=== PATIENT | male | born 1945 | race Caucasian/White ===

== ENCOUNTER 2019-09-12 07:00 | Outpatient (CLI) | payer BC ==
[2019-09-12] VITALS (10 sets, daily range): BP systolic 129–152; BP diastolic 64–79
[~2019-09-12] VITALS: Ht 182.9 cm; Wt 123.4 kg
[~2019-09-12 07:00] MED LIST: ASPI-630 PO; ASPI325T11 PO; ATOR20TA58 PO; CARV12.5 PO; CARV25TA PO; CARV6.25 PO; CHOL500016 PO; CLOP75TA57 PO; Cholestyramine/Aspartame PO; EZET10TA20 PO; LISI10TA2 PO; LISI20TA PO; METF500T16 PO; MULT-121 PO; OMEG10006 PO
[2019-09-12] MEDS ORDERED: ASPI-630 PO (07:30)
[2019-09-12] MEDS ORDERED: CARV12.5 PO (07:30)
[2019-09-12] MEDS ORDERED: TAMS0.4C97 PO (07:32)
[2019-09-12] MEDS ORDERED: MAGN400C PO (07:32)
[2019-09-12] MEDS ORDERED: IODIXANOL 320 MG/ML 100 ML VIAL. ONE (07:38)
[2019-09-12] MEDS ORDERED: LIDOCAINE 1% PF 2 ML VIAL. ONE (07:38)
[2019-09-12 07:48] LABS: HEMOGLOBIN 15.7 g/dL (13.0-17.5); RED BLOOD COUNT 5.27 x10^6/uL (4.30-5.70); RED CELL DISTRIBUTION WIDTH 13.4 % (11.5-14.5); WHITE BLOOD COUNT 7.6 x10^3/uL (4.0-11.0)
[2019-09-12] MEDS ORDERED: IODIXANOL 320 MG/ML 100 ML VIAL. IART ONE (08:00)
[2019-09-12] MEDS ORDERED: NITROGLYCERIN 200 MCG/2 ML SYRINGE FOR CATH/VASC LAB. IART ONE (08:00)
[2019-09-12] MEDS ORDERED: MIDAZOLAM HCL/PF 2 MG/2 ML VIAL. IV ONE (08:00)
[2019-09-12] MEDS ORDERED: HEPARIN for IV BOLUS 10,000 UNIT/10 ML VIAL. IART ONE (08:00)
[2019-09-12] MEDS ORDERED: fentaNYL PF VIAL 100 MCG/2 ML VIAL IV ONE (08:00)
[2019-09-12] MEDS ORDERED: VERAPAMIL 5 MG/2 ML VIAL. IART ONE (08:00)
[2019-09-12] MEDS ORDERED: LIDOCAINE 1% PF 2 ML VIAL. INJ ONE (08:00)
[2019-09-12 08:01] LABS: PROTHROMBIN TIME PATIENT 12.6 SEC (11.7-14.0)
[2019-09-12 08:08] LABS: CALCIUM 8.7 mg/dL (8.5-10.1); GFR 72.8; POTASSIUM 4.2 mmol/L (3.5-5.1)
[2019-09-12] MEDS ORDERED: MIDAZOLAM HCL/PF 2 MG/2 ML VIAL. ONE (08:57)
[2019-09-12] MEDS ORDERED: HEPARIN for IV BOLUS 10,000 UNIT/10 ML VIAL. IV ONE (09:15)
[2019-09-12] MEDS ORDERED: FUROSEMIDE 40 MG/4 ML VIAL. IVP ONE (10:00)
--- NOTE | 2019-09-12 10:01 | CARD ---
MR#: [id number] Date of Study: 09/12/2019 Ordering Physician: ELVIA VALENTE, Referring Physician: ELVIA VALENTE Tech: MELCHOR GARRIDO RTR APPROVED REPORT Technologist: MELCHOR GARRIDO RTR Nurse: Jovanna Centeno RN Procedure(s) performed: 1. Left heart catheterization, selective coronary angiography and left ventr iculography via right transradial approach 2. Instant wave free ratio (IFR) measurement of the left circumflex artery stenosis MODERATE SEDATION TIME: 40 MINUTES FLUORO TIME: 7.5 MIN DOSE: 90.7 GYCM2 CONTRAST: 146CC VISI INDICATION The indication(s) include : unstable angina . CSHA Clinical Frailty Scale CS Clinical Frailty Scale: Mildly Frail Heart Failure Heart Failure: No PROCEDURE NARRATIVE After explaining the risks, benefits and alternative options, informed consent was obtained from chin ent. Patient was brought to the cardiac Nursing Unit Coordinator and right wrist was prepped and draped in the usual fashion after confirming a positive modified Isaac's test. Arterial access was obtained in the righ t radial artery and a 6 [place] sheath was inserted. 6 [place] Lambert catheter was used to perform qi ective angiography of the left and right coronary arteries. 6 [place] pigtail catheter was used to pe rform left ventriculography. Since patient was found to have angiographically borderline significant stenosis involving the midsegment of the left circumflex artery, a decision was made to perform phys iologic assessment using Instant wave free ratio (IFR) measurement. The left main coronary artery was engaged with a 6 [place] XB 3.5 guide catheter and the stenosis in the midsegment of LCx was crossed with a [employer] Verrata PressureWire. IFR measurement was made that was insignificant and 1.0. Patient tolerated the procedure well. Hemostasis was achieved using TR band. There were no immediate compl ications. The following findings were noted. FINDINGS 1. 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 No pullback gradient across the aortic valve. 2. Left ventriculography: Normal left ventricle systolic function with ejection fraction estimated at 60%. No significant mitral regurgitation seen. 3. Coronary angiography: a. The left main coronary artery arose from the left sinus of Valsalva, gave rise to the left anteri or descending and left circumflex arteries and did not show any significant stenosis. b. The left anterior descending artery showed patent previously placed stents in the mid and distal segments. There was a 60% stenosis noted in the distal segment of LAD, proximal to the distal stent. The first diagonal branch which is a small to medium caliber vessel showed 70% stenosis in the proxi mal segment. c. The left circumflex artery showed 50-60% in-stent restenosis involving the midsegment after the t akeoff of the first obtuse marginal branch. This was physiologically insignificant based on IFR measu rement of 1.0. The previously placed stent in the proximal and mid segments of the obtuse marginal br anch was widely patent. d. The right coronary artery was a dominant vessel arising from the right sinus of Valsalva that sh owed widely patent stent in the distal segment extending into the posterior descending branch. Conclusion 1. Nonobstructive coronary artery disease. 50-60% in-stent restenosis involving the left circumflex artery, physiologically insignificant based on IFR measurement. The previously placed stents in the o btuse marginal branch of LCx, left anterior descending artery and right coronary artery with patent. 2. Normal left ventricle systolic function with ejection fraction estimated at 60%. Recommendations Medical Therapy Signed by : Elvia Valente, Electronically Approved : 09/12/2019 10:01:32
--- NOTE | 2019-09-12 10:04 | PDOC ---
MODERATE SEDATION ASSESSMENT RISKS/ALTERNATIVES Risks/Alternatives Risks and alternatives of this type of sedation and procedure discussed with: RISK/ALTERNATIVES: Patient H & P ON CHART H & P H & P on chart and reviewed for co-morbid conditions and appropriate labs. H&P ON CHART: Yes STATUS PREG STATUS ASSESSED: N/A MEDS/ALLERGIES REVIEWED Meds/Allergies Reviewed Medications and Allergies including time and route of recently administered narcotics and sedatives. MEDS/ALLERGIES REVIEWED: Yes ASA RATING ASA RATING: II AIRWAY ASSESSMENT Airway Assessment Airway patency, oral function limitations, presence of caps, crowns, dentures, partials, and ability to extend neck assessed. AIRWAY ASSESSMENT: Yes MALLAMPATI SCORE MALLAMPATI SCORE: II PRE-SEDATION ASSESSMENT PRE-SEDATION ASSESSMENT: Yes ELVIA VALENTE MD Sep 12, 2019 10:04
[2019-09-12] MEDS ORDERED: NITROGLYCERIN SUBLINGUAL 0.4 MG BOTTLE OF 25. SL PRN (10:15)
[2019-09-12] MEDS ORDERED: ISOS60TA2 PO (11:55)
--- NOTE | 2019-09-12 13:42 | CARD ---
MR#: [id number] Date of Study: 09/12/2019 Ordering Physician: ELVIA VALENTE, Referring Physician: ELVIA VALENTE Tech: Kriss Magallon RDCS APPROVED REPORT EXAM: Two-dimensional and M-mode echocardiogram with Doppler and color Doppler. Other Information Quality : Good INDICATION Cardiac Disease: CAD 2D DIMENSIONS RVDd3.1 (2.9-3.5cm)Left Atrium(2D)4.2 (1.6-4.0cm) IVSd1.2 (0.7-1.1cm)Aortic Root(2D)3.0 (2.0-3.7cm) LVDd4.4 (3.9-5.9cm)LVOT Diameter2.1 (1.8-2.4cm) PWd1.4 (0.7-1.1cm)LVDs2.6 (2.5-4.0cm) FS (%) 30.0 %SV63.7 ml LVEF(%)60.0 (>50%) M-Mode DIMENSIONS Aortic Cusp Exc1.48 (1.5-2.0cm) Aortic Valve AoV Peak Chris.127.3cm/sAoV VTI20.6cm AO Peak GR.6.5mmHgLVOT VTI 22.09cm AO Mean GR.3mmHgAVA (VTI)3.60cm2 Mitral Valve MV E Quwayvyr10.4cm/sMV DECEL [id number] MV A Yvlqwwby89.1cm/sE/A Ratio0.7 TDI Lateral E' P. V5.99cm/sMedial E' P. V3.67cm/s E/Lateral E'9.4E/Medial E'15.4 Pulmonary Vein S1 Fkiovoxb95.6cm/sS2 Meycsttg68.48cm/s D2 Vidodwrv21.5cm/s LEFT VENTRICLE The left ventricle is normal size. There is mild concentric left ventricular hypertrophy. The left ve ntricular systolic function is normal. The ejection fraction is estimated at 60%. There is normal LV segmental wall motion. Transmitral Doppler flow pattern is Grade I-abnormal relaxation pattern. RIGHT VENTRICLE The right ventricle is normal size. The right ventricular systolic function is normal. ATRIA The left atrium is mildly dilated. The right atrium size is normal. The interatrial septum is intact with no evidence for an atrial septal defect or patent foramen ovale as noted on 2-D or Doppler imagi ng. AORTIC VALVE The aortic valve is moderately thickened but opens well. Doppler and Color Flow revealed no significa nt aortic regurgitation. There is no significant aortic valvular stenosis. MITRAL VALVE The mitral valve is calcified but opens well. There is no evidence of mitral valve prolapse. There is no mitral valve stenosis. Doppler and Color Flow revealed no mitral valve regurgitation noted. TRICUSPID VALVE The tricuspid valve is normal in structure and function. Doppler and Color Flow revealed trace tricus pid regurgitation. There is no tricuspid valve stenosis. PULMONIC VALVE The pulmonic valve is not well visualized. Doppler and Color Flow revealed no pulmonic valvular regur gitation. There is no pulmonic valvular stenosis. GREAT VESSELS The aortic root is normal in size. The ascending aorta is moderately dilated t 3.6 cm. The IVC is nor mal in size and collapses >50% with inspiration. PERICARDIAL EFFUSION There is no evidence of significant pericardial effusion. Critical Notification Critical Value: No <Conclusion> The left ventricular systolic function is normal. The ejection fraction is estimated at 60%. There is normal LV segmental wall motion. Transmitral Doppler flow pattern is Grade I-abnormal relaxation pattern. Trace tricuspid regurgitation. There is no evidence of significant pericardial effusion. Signed by : Elvia Valente, Electronically Approved : 09/12/2019 13:41:37
[2019-09-13] MEDS ORDERED: ISOSORBIDE MONONITRATE ER 30 MG TAB.ER.24H PO SCH (09:00)
== END 2019-09-12 12:30 | disposition home or self-care (01) ==
LOC: CCL 07:00
PROVIDERS: ATTEND Internal Medicine Cardiovascular Disease
DX: I25.110 Atherosclerotic heart disease of native coronary artery with unstable angina pectoris (principal); I07.1 Rheumatic tricuspid insufficiency; Z95.5 Presence of coronary angioplasty implant and graft; Z79.82 Long term (current) use of aspirin; Z79.84 Long term (current) use of oral hypoglycemic drugs; Z79.899 Other long term (current) drug therapy
CPT/HCPCS: 36415; 80048; 85027; 85610; 93306; 93458; 93571; C1769; C1887; C1892; J1644; J1940; J2250; J3010; J3490; Q9967; 99152; 99153

== ENCOUNTER → 2019-09-15 | Outpatient (CLI) | payer OTHER ==
[2019-09-12 11:50] VITALS: BP 134/73
[~2019-09-15] MED LIST changes: +ISOS60TA2 PO; +MAGN400C PO; +TAMS0.4C97 PO
--- NOTE | 2019-09-18 11:01 | RAD ---
Bilateral lower extremity arterial ultrasound History: Leg pain Findings: Multiple grayscale, color, and duplex spectral analysis sonographic images were acquired of the lower extremity arteries bilaterally. There are no previous similar exams. Minimal intimal thickening and minimal scattered plaque is noted involving the lower extremity arterial vasculature. Velocities in cm/sec: RIGHT Common femoral artery 126 Profunda femoris artery 63 Proximal SFA 114 Mid SFA 102 Distal SFA 150 Popliteal artery 71 Anterior tibial artery 76 Dorsalis pedis artery 88 Posterior tibial artery 83 Peroneal artery 58 Triphasic spectral waveform is seen throughout the right lower extremity arterial vasculature except in the deep femoral artery and the peroneal artery where biphasic waveforms are present. LEFT: Common femoral artery 139 Profunda femoris artery 40 Proximal SFA 99 Mid SFA 102 Distal SFA 82 Popliteal artery 107 Anterior tibial artery 65 Dorsalis pedis artery 109 Posterior tibial artery 77 Peroneal artery 30 Triphasic spectral waveform is seen throughout the left lower extremity arterial vasculature except in the deep femoral artery and the peroneal artery where biphasic waveforms are present. Impression: No hemodynamic stenosis. Minimal intimal thickening and minimal scattered plaque throughout the arterial vasculature with overall unremarkable spectral waveforms. Electronically signed by: Justin Naranjo MD (09/18/2019 10:58 AM) [facility]
== END | disposition home or self-care (01) ==
LOC: US 07:15
PROVIDERS: ATTEND Internal Medicine Cardiovascular Disease
DX: I70.293 Other atherosclerosis of native arteries of extremities, bilateral legs (principal)
CPT/HCPCS: 93925